=== PATIENT | female | born 1985 | race Caucasian/White ===

== ENCOUNTER 2017-08-03 09:21 | Day surgery (SDC) | payer BC ==
[~2017-08-03 09:21] MED LIST: Lactated Ringers 1,000 ML IV SCH; Lidocaine 1%/Sod Bicarbonate in NS 8.4% 1 ML Syringe PRN; Sodium Chloride 0.9% 10 ML Syringe FLUSH PRN
--- NOTE | 2017-08-03 09:46 | PCM.PREANE ---
Preanesthetic Assessment - Procedure Proposed Procedure: Open umbilical hernia repair. - Anesthesia/Transfusion/Family Hx Anesthesia History: No Prior Anesthesia Family History of Anesthesia Reaction: No Transfusion History: No Prior Transfusion(s) Intubation History: Unknown - Review of Systems General: No Symptoms Pulmonary: No Symptoms Cardiovascular: No Symptoms Gastrointestinal: Abdominal Pain, Diarrhea Neurological: Headache, Numbness, Tingling (Patient states she gets numbness/ tingling in hands occasionally from neuropathy.) Other: Reports: Depression, Anxiety - Physical Assessment NPO Status Date: 08/02/17 NPO Status Time: 21:30 Pulse: 62 O2 Sat by Pulse Oximetry: 97 Respiratory Rate: 16 Blood Pressure: 117/77 Temperature: 36.9 C Height: 1.73 m Weight: 68.629 kg ASA Class: 2 Mental Status: Alert & Oriented x3 Airway Class: Mallampati = 1 Dentition: Reports: Normal Dentition Thyro-Mental Finger Breadths: 3 Mouth Opening Finger Breadths: 3 ROM/Head Extension: Full Lungs: Clear to Auscultation, Normal Respiratory Effort Cardiovascular: Regular Rate, Regular Rhythm - Lab Values: Laboratory Last Values Urine HCG, Qual Negative (NEGATIVE) 08/03/17 09:27 - Allergies Allergies/Adverse Reactions: Allergies Allergy/AdvReac Type Severity Reaction Status Date / Time Sulfa (Sulfonamide Allergy Itching Verified 03/12/16 15:39 Antibiotics) amoxicillin trihydrate AdvReac Vomiting Verified 03/15/16 08:58 [From Augmentin] potassium clavulanate AdvReac Vomiting Verified 03/15/16 08:58 [From Augmentin] - Anesthesia Plan Pre-Op Medication Ordered: None - Acknowledgements Anesthesia Type Planned: General Anesthesia Pt an Appropriate Candidate for the Planned Anesthesia: Yes Alternatives and Risks of Anesthesia Discussed w Pt/Guardian: Yes Pt/Guardian Understands and Agrees with Anesthesia Plan: Yes PreAnesthesia Questionnaire HEENT History: Reports: None Cardiovascular History: Reports: Hypertension Other Cardiovascular History: Patient had high blood pressure only with Respiratory History: Reports: Bronchitis, Recurrent Gastrointestinal History: Reports: GERD, Other (See Below) Other Gastrointestinal History: current left inguinal hernia, diarrhea, nausea, L groin pain Genitourinary History: Reports: Renal Calculus CLOSET BUILDER History: Reports: , Other (See Below) Other OB/BYN History: amenorrhea, mastitis Musculoskeletal History: Reports: Other (See Below) Other Musculoskeletal History: knee pain, body aches, low back pain Neurological History: Reports: Migraines, Vertigo, Other (See Below) Other Neuro History: peripheral sensory neuropathy, dizziness Psychiatric History: Reports: Anxiety, Depression Other Psychiatric History: fatigue Endocrine/Metabolic History: Reports: Other (See Below) Other Endocrine/Metabolic History: hypoglycemia Hematologic History: Reports: None Immunologic History: Reports: None Oncologic (Cancer) History: Reports: None Other Dermatologic History: atypical nevus, skin neoplasm - Past Surgical History Head Surgeries/Procedures: Reports: None HEENT Surgical History: Reports: LASIK, Oral Surgery, Other (See Below) Other HEENT Surgeries/Procedures: oral surgery Cardiovascular Surgical History: Reports: None Respiratory Surgical History: Reports: None GI Surgical History: Reports: None, Hernia Repair/Other Female Surgical History: Reports: None Neurological Surgical History: Reports: None Musculoskeletal Surgical History: Reports: None Oncologic Surgical History: Reports: None Dermatological Surgical History: Reports: None - SUBSTANCE USE Smoking Status *Q: Former Smoker Second Hand Smoke Exposure: Yes Days Per Week of Alcohol Use: 0 Recreational Drug Use History: No - HOME MEDS Home Medications: Home Meds FLUoxetine HCl [Fluoxetine HCl] 10 mg PO DAILY 03/12/16 [History] Ibuprofen [Motrin] 600 mg PO TID PRN 03/15/16 [History] - CURRENT (IN HOUSE) MEDS Current Meds: Current Medications Lactated Ringer's (Ringers, Lactated) 1,000 mls @ 125 mls/hr IV ASDIRECTED MARY Stop: 08/03/17 23:00 Lidocaine/Sodium Bicarbonate (Buffered Lidocaine 1% In Ns 8.4%) 0.25 ml .XX ONETIME PRN PRN Reason: Prior to IV Start Stop: 08/03/17 18:00 Sodium Chloride (Saline Flush) 10 ml FLUSH ASDIRECTED PRN PRN Reason: Keep Vein Open Stop: 08/03/17 18:00 Discontinued Medications Cefazolin Sodium (Ancef) Confirm Administered Dose 2 gm .ROUTE .STK-MED ONE Stop: 08/03/17 09:51 Fentanyl (Sublimaze) Confirm Administered Dose 100 mcg .ROUTE .STK-MED ONE Stop: 08/03/17 09:50 Lidocaine HCl (Xylocaine-Mpf 1%) Confirm Administered Dose 4 mls @ as directed .ROUTE .STK-MED ONE Stop: 08/03/17 09:50 Midazolam HCl (Versed 1 Mg/Ml) Confirm Administered Dose 2 mg .ROUTE .STK-MED ONE Stop: 08/03/17 09:50 Ondansetron HCl (Zofran) Confirm Administered Dose 4 mg .ROUTE .STK-MED ONE Stop: 08/03/17 09:50 Propofol (Diprivan 20 Ml) Confirm Administered Dose 200 mg .ROUTE .STK-MED ONE Stop: 08/03/17 09:50
[2017-08-03] MEDS ORDERED: Propofol 200 MG/20 ML SDV ONE (09:49)
[2017-08-03] MEDS ORDERED: Midazolam 1 MG/ML 2 ML SDV ONE (09:49)
[2017-08-03] MEDS ORDERED: fentaNYL 100 MCG/2 ML SDV ONE (09:49)
[2017-08-03] MEDS ORDERED: Ondansetron 4 MG/2 ML SDV ONE (09:49)
[2017-08-03] MEDS ORDERED: Lidocaine 1% 4 ML ONE (09:49)
[2017-08-03] MEDS ORDERED: ceFAZolin 1 GM Vial ONE (09:50)
[2017-08-03] MEDS ORDERED: Lidocaine 1% with EPINEPHrine 1:100,000 20 ML MDV ONE (10:08)
[2017-08-03] MEDS ORDERED: Bupivacaine 0.5%/EPINEPHrine 1:200,000 50 ML MDV ONE (10:08)
[2017-08-03] MEDS ORDERED: fentaNYL 100 MCG/2 ML SDV IVPUSH PRN (11:50)
[2017-08-03] MEDS ORDERED: Ondansetron 4 MG/2 ML SDV IVPUSH PRN (11:50)
[2017-08-03] MEDS ORDERED: HYDROmorphone 0.5 MG/0.5 ML Syringe IVPUSH PRN (11:50)
--- NOTE | 2017-08-03 12:11 | PCM.OPNOTE ---
- General Post-Op/Procedure Note Date of Surgery/Procedure: 08/03/17 Operative Procedure(s): Open umbilical hernia primary repair Findings: 1 cm umbilical defect containing omental fat incarcerated Pre Op Diagnosis: Symptomatic umbilical hernia Post-Op Diagnosis: Incarcerated symptomatic umbilical hernia Anesthesia Technique: General LMA, Local Primary Surgeon: Kendell Caro Pathology: None EBL in mLs: 1 Complications: None Condition: Good Free Text/Narrative:: After adequate LMA general anesthesia was obtained the patient's abdomen was prepped and draped sterilely for an open umbilical hernia repair. After local analgesia was given a 15 blade was used to make an incision just above the umbilicus. The herniation was seen and dissected away from the surrounding subcutaneous structures with Metzenbaums scissors down to the fascia. The skin was sharply with Metzenbaums from the top of the hernia sac. I opened the thin sac which contained omentum along with some preperitoneal fat. I excised the sac after reducing its contents at the level of the fascia. The defect was about a centimeter in diameter which I closed with 4 interrupted 0 Ethibond sutures. Additional local was given after irrigation. The umbilical skin was attached to the midline with 2 interrupted 3-0 Vicryl. Subcutaneous tissues and skin were closed with Vicryl as well. Steri-Strips and gauze were used for the dressing. There were no complications.
--- NOTE | 2017-08-03 12:17 | PCM.POSTAN ---
POST ANESTHESIA ASSESSMENT - MENTAL STATUS Mental Status: Alert, Oriented - VITAL SIGNS Pulse Rate: 70 SaO2: 99 Resp Rate: 9 Blood Pressure: 123/59 Temperature: 36.7 C - RESPIRATORY Respiratory Status: Respiratory Rate WNL, Airway Patent, O2 Saturation Stable - CARDIOVASCULAR CV Status: Pulse Rate WNL, Blood Pressure Stable - GASTROINTESTINAL GI Status: No Symptoms - POST OP HYDRATION Hydration Status: Adequate & Stable
--- NOTE | 2017-08-03 12:45 | PCM48HPAN ---
Post Anesthesia Note - EVALUATION WITHIN 48HRS OF ANESTHETIC Vital Signs in Normal Range: Yes Patient Participated in Evaluation: Yes Respiratory Function Stable: Yes Airway Patent: Yes Cardiovascular Function Stable: Yes Hydration Status Stable: Yes Pain Control Satisfactory: Yes Nausea and Vomiting Control Satisfactory: Yes Mental Status Recovered: Yes
[2017-08-03] MEDS ORDERED: Acetaminophen/Codeine 300-30 MG Tab PO ONE ×2 (14:00→14:15)
[2017-08-03 14:54] VITALS: BP 110/67
== END 2017-08-03 14:35 | disposition home or self-care (01) ==
LOC: JD.SDS 09:21
PROVIDERS: ATTEND Surgery
PROC: 0WQF0ZZ Repair Abdominal Wall, Open Approach (ICD-10-PCS; principal; 2017-08-03)
DX: K42.0 Umbilical hernia with obstruction, without gangrene (principal); E16.2 Hypoglycemia, unspecified; N20.0 Calculus of kidney; I10 Essential (primary) hypertension; K21.9 Gastro-esophageal reflux disease without esophagitis; F41.9 Anxiety disorder, unspecified; F32.9 Major depressive disorder, single episode, unspecified; Z88.1 Allergy status to other antibiotic agents; Z88.2 Allergy status to sulfonamides; Z88.8 Allergy status to other drugs, medicaments and biological substances; Z98.890 Other specified postprocedural states; Z87.891 Personal history of nicotine dependence
CPT/HCPCS: 49587; 81025; A9270; J0690; J1170; J2250; J2405; J3010; J7120; 00830; J2704

== ENCOUNTER 2020-05-19 20:20 | Emergency (ER) | payer OTHER ==
[2020-05-19 20:41] VITALS: BP 116/78; PULSE 51
--- NOTE | 2020-05-19 21:02 | EDM.PDOC ---
ED HPI GENERAL MEDICAL PROBLEM - General Chief Complaint: STORE LEAD Problem Stated Complaint: LOWER ABDOMINAL PAIN Time Seen by Provider: 05/19/20 20:33 Source of Information: Reports: Patient History Limitations: Reports: No Limitations (Patient somewhat annoyed that she was sent to the ED) - History of Present Illness INITIAL COMMENTS - FREE TEXT/NARRATIVE: Mrs. Clayton is a pleasant 34-year-old woman with a past medical history significant for numerous ovarian cysts, who now presents the ED, sent over from the walk-in clinic, with a complaint of left lower quadrant/left pelvic pain for the past week. She describes the pain as sharp and crampy in character. It has been waxing and waning, but progressively getting worse. She has not identified any modifiers. She has had nausea, but no vomiting, constipation, diarrhea, or any urinary symptoms. She states that her current symptoms are very similar to prior ovarian cysts. Additionally, the patient reports that she has been feeling slightly lightheaded when upright for the past 2 weeks. The patient's LMP was 04/29/2020, and was normal for her. She states that there is no chance that she could be . The patient states that she has taken [id number] Tylenol to address her symptoms. The patient went to the walk-in clinic, where a CBC was normal, a urinalysis and urine test were negative, and a wet prep was positive for yeast, but was otherwise negative. She was then sent here to undergo a transvaginal ultrasound to evaluate for an ovarian cyst. Here in the ED, the patient is found to be slightly bradycardic at 51 bpm, otherwise, she is hemodynamically stable, afebrile, saturating 100% on room air. Other than the above symptoms, the patient denies recent fever, chills, sore thr oat, ear pain, nasal or sinus congestion, cough, dyspnea, chest pain, palpitations, vomiting, constipation, diarrhea, urinary symptoms, recent weight gain or weight loss, recent bloody bowel movements or black bowel movements, recent joint aches, headaches, or rashes. The patient's PCP is IVORY Justin. Her Hoop Bender Tank is Dr. Tyrell Quispe. Left Lower Abdomen Pain Score (Numeric/FACES): 7 - Related Data Allergies Allergy/AdvReac Type Severity Reaction Status Date / Time Sulfa (Sulfonamide Allergy Severe Itching Verified 05/19/20 20:41 Antibiotics) sulfamethoxazole Allergy Severe Cannot Verified 05/19/20 20:41 [From Bactrim] Remember trimethoprim [From Bactrim] Allergy Severe Cannot Verified 05/19/20 20:41 Remember amoxicillin trihydrate AdvReac Severe Vomiting Verified 05/19/20 20:41 [From Augmentin] potassium clavulanate AdvReac Severe Vomiting Verified 05/19/20 20:41 [From Augmentin] Home Meds: Home Meds . [No Known Home Meds] 05/19/20 [History] Past Medical History Gastrointestinal History: Reports: GERD (untreated) Genitourinary History: Reports: Renal Calculus STORE LEAD History: Reports: Spontaneous (x 1), Other (See Below) (Ovarian cysts) : 3 Para: 2 Neurological History: Reports: Neuropathy, Peripheral Psychiatric History: Reports: Anxiety (untreated), Depression (untreated) - Past Surgical History HEENT Surgical History: Reports: LASIK (bilateral), Oral Surgery (wisdom teeth extracton + root canals) GI Surgical History: Reports: Hernia, Abdominal (umbilical), Hernia, Inguinal (left) Social & Family History - Family History Family Medical History: Noncontributory - Tobacco Use Smoking Status *Q: Former Smoker Years of Tobacco use: 1 Packs/Tins Daily: 1 Month/Year Tobacco Last Used: Quit 12/06/2015 Second Hand Smoke Exposure: No - Caffeine Use Caffeine Use: Reports: None - Alcohol Use Alcohol Use History: No - Recreational Drug Use Recreational Drug Use: Yes Drug Use in Last 12 Months: No Recreational Drug Type: Reports: Marijuana/Hashish (last smoked 2009) - Living Situation & Occupation Living situation: Reports: , with Spouse, with Family (2 sons) Occupation: Employed (drill operator) ED ROS GENERAL - Review of Systems Review Of Systems: Comprehensive ROS is negative, except as noted in HPI. ED EXAM, RENAL/ - Physical Exam Exam: See Below Exam Limited By: No Limitations General Appearance: Alert, WD/WN, No Apparent Distress Eye Exam: Bilateral Eye: EOMI, Normal Inspection Ears: Normal External Exam, Hearing Grossly Normal Nose: Normal Inspection Throat/Mouth: Normal Inspection, Normal Lips, Normal Voice, No Airway Compromise Head: Atraumatic, Normocephalic Neck: Normal Inspection, Full Range of Motion Respiratory/Chest: No Respiratory Distress, Lungs Clear, Normal Breath Sounds, No Accessory Muscle Use Cardiovascular: Normal Peripheral Pulses, No Edema, No Gallop, No JVD, No Murmur, No Rub, Bradycardia (regular) GI/Abdominal: Normal Bowel Sounds, Soft, No Organomegaly, No Distention, No Abnormal Bruit, No Mass, Tender (Left lower quadrant/left pelvis only. Completely nontender elsewhere.) (Female) Exam: Deferred Rectal (Female) Exam: Deferred Back Exam: Normal Inspection, Full Range of Motion. No: CVA Tenderness (L), CVA Tenderness (R) Extremities: Normal Inspection, Normal Range of Motion, No Pedal Edema, Normal Capillary Refill Neurological: Alert, Oriented, Normal Cognition, No Motor/Sensory Deficits Psychiatric: Normal Affect Skin Exam: Warm, Dry, Intact, Normal Color, No Rash Course - Vital Signs Last Recorded V/S: Last Vital Signs Temp 36.6 C 05/19/20 20:39 Pulse 51 L 05/19/20 20:39 Resp 16 05/19/20 20:39 BP 116/78 05/19/20 20:39 Pulse Ox 100 05/19/20 20:39 Orthostatic Blood Pressure [ 106/74 Standing] Orthostatic Blood Pressure [ 114/76 Sitting] Orthostatic Blood Pressure [ 103/60 Supine] - Orders/Labs/Meds Orders: Active Orders 24 hr Category Date Time Status Orthostatic Vital Signs [RC] STAT Care 05/19/20 20:58 Active Transvaginal Non OB [US] Stat Exams 05/19/20 20:58 Taken - Re-Assessments/Exams Free Text/Narrative Re-Assessment/Exam: 05/19/20 20:59 As above, the patient has had a week of waxing and waning left lower quadrant pain, not unlike prior ovarian cysts that she has experienced. She was seen at the walk-in clinic, where a urine dip and urine test were negative, CBC was normal, and a wet prep showed yeast, but was otherwise negative. She was sent here for an sound to evaluate for an ovarian cyst. On physical exam, she has reproducible tenderness to her left lower quadrant/left pelvis, with the remainder of her physical exam being unremarkable. Because the patient reported slight lightheadedness when upright for the past 2 weeks, I have ordered orthostatics, in addition to the ultrasound for which she is here. The patient declined an offer for pain medication. 05/19/20 23:05 Transvaginal ultrasound is read by [facility] as: 1. Normal appearance of the uterus, endometrium and left ovary. There is a small to moderate volume of free fluid in the cul-de-sac and left adnexa, which could indicate a recently ruptured left ovarian cyst. 2. Probable involuting follicle in the right ovary. 3. No evidence of ovarian torsion. Orthostatics are still pending. 05/19/20 23:18 The patient is not orthostatic. 05/19/20 23:22 Test results discussed with the patient. As above, it appears that the patient has a ruptured left ovarian cyst as the cause of her pain. Treatment is ibuprofen. If her symptoms persist, I would like her to follow-up with Dr. Quispe. Departure - Departure Time of Disposition: 23:23 Disposition: Home, Self-Care 01 Condition: Good Clinical Impression: Ruptured cyst of left ovary - Discharge Information *PRESCRIPTION DRUG MONITORING PROGRAM REVIEWED*: Not Applicable *COPY OF PRESCRIPTION DRUG MONITORING REPORT IN PATIENT [place]: Not Applicable Referrals: Tyrell Quispe MD [Physician] - Maggie French PA-C [Physician Office Automation Technician] - Forms: ED Department Discharge Additional Instructions: You were seen in the emergency room for 1 week of progressively worsening lower left abdominal/pelvic pain along with 2 weeks of slight lightheadedness. Work-up in the ER included positional blood pressure checks and a transvaginal ultrasound. Your positional blood pressure checks were normal, but the transvaginal ultrasound confirmed that you have a ruptured left ovarian cyst. This is most likely the cause of your symptoms. We recommend that you take [id number] ibuprofen, 3 tablets (600 mg), with food, up to every 8 hours, as needed for discomfort. If your symptoms persist, we recommend that you follow-up with your fisher dip net, Dr. Tyrell Quispe, for further evaluation. If any other problems, please do not hesitate to return to the ER. Sepsis Event Note (ED) - Evaluation Sepsis Screening Result: No Definite Risk - Focused Exam Vital Signs: Vital Signs Temp Pulse Resp BP Pulse Ox 05/19/20 20:39 36.6 C 51 L 16 116/78 100 - My Orders Last 24 Hours: My Active Orders 05/19/20 20:58 Orthostatic Vital Signs [RC] STAT Transvaginal Non OB [US] Stat - Assessment/Plan Last 24 Hours: My Active Orders 05/19/20 20:58 Orthostatic Vital Signs [RC] STAT Transvaginal Non OB [US] Stat
[2020-05-19] MEDS ORDERED: Ibuprofen 600 MG Tab PO ONE (23:24)
--- NOTE | 2020-05-20 06:50 | US ---
Pelvic ultrasound: Multiple real-time images were obtained transvaginally. Comparison: Previous pelvic ultrasound of 06/19/19. Uterus is retroverted. No myometrial abnormality is seen. Endometrial thickness is 1.1 cm. Free fluid is seen within the pelvis. Follicles are noted within the ovaries. No larger cyst or solid abnormality is appreciated. Measurements: Uterus: Length 7.9 cm, AP height 5.0 cm, transverse width 5.6 cm Right ovary: 4.4 x 2.0 x 2.7 cm Left ovary: 3.7 x 1.3 x 2.2 cm Impression: 1. Free fluid within the cul-de-sac most likely due to nonvisualized cyst or follicle rupture. 2. No additional abnormality is appreciated on pelvic ultrasound exam. Diagnostic code #2 This report was dictated in MDT I agree with preliminary report from Elinor, finalized on 05/19/20, 11:20 PM Central Daylight Time
== END 2020-05-19 23:33 | disposition home or self-care (01) ==
LOC: JD.ED 20:20
DX: N83.202 Unspecified ovarian cyst, left side (principal); Z87.891 Personal history of nicotine dependence; Z88.2 Allergy status to sulfonamides; Z88.1 Allergy status to other antibiotic agents
CPT/HCPCS: 76830; 76830-26; 99283; 99284-25

== ENCOUNTER 2022-10-12 06:40 | Day surgery (SDC) | payer BC ==
[~2022-10-12 06:40] MED LIST changes: +Lidocaine 1%/Sod Bicarbonate in NS 8.4% 1 ML Syringe IDERM PRN; -Lidocaine 1%/Sod Bicarbonate in NS 8.4% 1 ML Syringe PRN; +Sodium Chloride 0.9% 10 ML Syringe FLUSH SCH
[2022-10-12] MEDS ORDERED: Bupivacaine 0.5% 30 ML SDV ONE (07:24)
[2022-10-12] MEDS ORDERED: Scopolamine 1.5 MG Transdermal Patch TOP SCH (07:28)
[2022-10-12] MEDS ORDERED: Ondansetron 4 MG/2 ML SDV IVPUSH PRN ×2 (07:29→08:41)
[2022-10-12] MEDS ORDERED: fentaNYL 100 MCG/2 ML SDV IVPUSH PRN (07:29)
[2022-10-12] MEDS ORDERED: HYDROmorphone 0.5 MG/0.5 ML Syringe IVPUSH PRN (07:29)
[2022-10-12] MEDS ORDERED: Propofol 200 MG/20 ML SDV ONE (07:38)
[2022-10-12] MEDS ORDERED: Ketamine 500 mg/10 ML MDV ONE (07:38)
[2022-10-12] MEDS ORDERED: Midazolam 1 MG/ML 2 ML SDV ONE (07:38)
[2022-10-12] MEDS ORDERED: fentaNYL 100 MCG/2 ML SDV ONE (07:38)
[2022-10-12] MEDS ORDERED: Rocuronium 50 MG/5 ML Vial ONE (07:42)
[2022-10-12] MEDS ORDERED: Dexamethasone 4 MG/ML 5 ML MDV ONE (07:43)
[2022-10-12] MEDS ORDERED: Lidocaine 1% 5 ML VIAL ONE (07:43)
[2022-10-12] MEDS ORDERED: Ondansetron 4 MG/2 ML SDV ONE (07:43)
[2022-10-12] MEDS ORDERED: ceFAZolin 2 GM Vial ONE (07:52)
[2022-10-12] MEDS ORDERED: Neostigmine Methylsulfate 10 MG/10 ML MDV ONE (08:22)
[2022-10-12] MEDS ORDERED: Acetaminophen/oxyCODONE 325-5 MG Tab PO PRN (08:41)
[2022-10-12] MEDS ORDERED: Ibuprofen 600 MG Tab PO PRN (08:41)
[2022-10-12 11:52] VITALS: BP 112/60; PULSE 60
== END 2022-10-12 11:20 | disposition home or self-care (01) ==
LOC: JD.SDS 06:40
PROVIDERS: ATTEND Obstetrics & Gynecology
DX: N92.0 Excessive and frequent menstruation with regular cycle (principal); N94.6 Dysmenorrhea, unspecified; N94.10 Unspecified dyspareunia; E16.2 Hypoglycemia, unspecified; I10 Essential (primary) hypertension; F41.9 Anxiety disorder, unspecified; F32.A Depression, unspecified; G43.909 Migraine, unspecified, not intractable, without status migrainosus; K21.9 Gastro-esophageal reflux disease without esophagitis; G62.9 Polyneuropathy, unspecified; Z88.2 Allergy status to sulfonamides; Z88.1 Allergy status to other antibiotic agents; Z98.890 Other specified postprocedural states; Z87.891 Personal history of nicotine dependence; Z79.899 Other long term (current) drug therapy
CPT/HCPCS: 00840; 36415; 81003; 81025; 85025; A9270-GY; J0690; J1100; J2250; J2405; J2704; J2710; J3010; J3490; J7120

== ENCOUNTER 2024-11-22 07:37 | Day surgery (SDC) | payer BC ==
[~2024-11-22 07:37] MED LIST changes: -Lactated Ringers 1,000 ML IV SCH; +Lidocaine 1% 6 ML ONE; -Lidocaine 1%/Sod Bicarbonate in NS 8.4% 1 ML Syringe IDERM PRN; +Midazolam 1 MG/ML 2 ML SDV ONE; +Propofol 200 MG/20 ML SDV ONE
[2024-11-22] MEDS: Lactated Ringers 1,000 ML IV SCH (08:15)
[2024-11-22] MEDS ORDERED: Propofol 200 MG/20 ML SDV ONE (08:19)
[2024-11-22] MEDS ORDERED: Glycopyrrolate 0.2 MG/ML 2 ML SDV ONE (10:07)
[2024-11-22 10:33] VITALS: BP 101/56; PULSE 52
== END 2024-11-22 10:23 | disposition home or self-care (01) ==
LOC: JD.SDS 07:37
PROVIDERS: ATTEND Surgery
DX: K31.89 Other diseases of stomach and duodenum (principal); K44.9 Diaphragmatic hernia without obstruction or gangrene; E03.9 Hypothyroidism, unspecified; Z88.8 Allergy status to other drugs, medicaments and biological substances; Z88.2 Allergy status to sulfonamides; Z88.7 Allergy status to serum and vaccine; Z79.890 Hormone replacement therapy; Z79.899 Other long term (current) drug therapy; Z86.16 Personal history of COVID-19; Z87.891 Personal history of nicotine dependence
CPT/HCPCS: 43239; J2250; J2704; J3490; J7120; 00731